=== PATIENT | male | born 1955 | race Caucasian/White ===

== ENCOUNTER 2017-09-21 09:55 | Outpatient (POV) | payer OTHER, SELFPAY | END 2017-09-21 12:08 | disposition home or self-care (01) | PROVIDERS: Visit Provider Podiatrist | DX: M21.372 Foot drop, left foot (principal); E11.42 Type 2 diabetes mellitus with diabetic polyneuropathy; L84 Corns and callosities | CPT/HCPCS: 99202; 11056; 73630 ==

== ENCOUNTER → 2017-09-29 | Outpatient (POV) | payer OTHER, SELFPAY | PROVIDERS: Visit Provider Podiatrist ==

== ENCOUNTER → 2017-11-03 10:31 | Outpatient (POV) | payer OTHER, SELFPAY | PROVIDERS: Visit Provider Podiatrist | DX: Z00.00 Encounter for general adult medical examination without abnormal findings (principal) ==

== ENCOUNTER → 2017-12-29 06:22 | Outpatient (CLI) | payer OTHER, SELFPAY ==
--- NOTE | 2017-12-29 06:27 | NM_ITS ---
History and Indications: Hypertension, diabetes, hyperlipidemia, family history, chest pain, shortness of breath and fatigue Procedure: Patient received a 0.4 mg of Lexiscan, resting heart rate was 69 beats per resting blood pressure 122/61, with Lexiscan patient denied any symptoms of chest pain or shortness of breath. The maximum heart rate achieved was 89 bpm which is less than 85% of the maximum predicted heart rate and a blood pressure was 123/58. Electrocardiogram: Resting electrocardiogram showed sinus rhythm nonspecific ST-T changes possible inferior infarct age indeterminate, with Lexiscan there is less than 1.[address] segment depression noted from the baseline EKG. The EKG portion of the Lexiscan Myoview is nondiagnostic. Cardiac stress and resting SPECT images: Cardiac stress and resting SPECT images were obtained using Tc 99 Myoview 10.5 mCi at rest and 31.9 mCi at stress, gated SPECT further analysis of segmental wall motion and calculation of ejection fraction also done. Cardiac stress and rest SPECT images show a fixed defect in the inferior wall with normal contractility in the gated SPECT is secondary to soft tissue attenuation. Computer derived ejection fraction is 53% with no obvious regional wall motion abnormality, right ventricle is normal size and contractility. Conclusion: 1. The EKG portion of the Lexiscan Myoview is nondiagnostic. 2. No obvious scintigraphic evidence of reversible ischemia seen, computer derived ejection fraction is 53% with no obvious regional wall motion abnormality, right ventricle is normal size and contractility.
--- NOTE | 2017-12-29 07:12 | CA_ITS ---
PROCEDURE: 2-D M-mode and color Doppler study INDICATIONS FOR THE TEST: Chest pain + COPD Heart Murmur Tobacco Smoking Palpitations Fatigue Syncope Edema Hypertension+Diabetes Mellitus+ Rheumatic Fever SOB+ANGELES+Obesity+Hyperlipidemia+ Family History HD Additional History PATIENT INFORMATION HEIGHT: 68 WEIGHT:230 GENDER: Male B/P:120/66 2-D/M-MODE INTERPRETATION: 2-D MEASUREMENTS OBSERVED VALUES IN CMS Right Ventricular Dimension (RVDd) 1.7 Interventricular Septum (Thickness)(IVsd) 0.9 Left Ventricular Internal Dimensions(LVIDd) 5.2 Left Ventricular Posterior Wall (Thickness)(LVPWd) 1.2 Aortic Root 3.4 Aortic Cusp Separation 2.1 Left Atrial Dimensions (LAD) 3.8 2D 1. Left atrium is qualitatively mildly enlarged, left ventricle is normal size, there is mild concentric left ventricular hypertrophy present, visually estimated ejection fraction of 55% with no obvious regional wall motion abnormality. 2. The right atrium and right ventricle are qualitatively mildly enlarged. 3. The aortic valve is minimally thickened and fibrosed. 4. The mitral and tricuspid valve leaflets are minimally thickened. 5. The pulmonic valve is poorly visualized. 6. No significant pericardial effusion noted. DOPPLER INTERROGATION: Doppler interrogation of the aortic, mitral and tricuspid valvular presence of mild mitral and tricuspid regurgitation, tricuspid and jet velocity is insufficient for calculation of the right ventricular systolic pressure, grade 1 diastolic dysfunction seen with tissue Doppler evidence of raised left atrial pressure. CONCLUSION: 1. Mildly enlarged left atrium, normal left ventricular size, mild concentric left ventricular hypertrophy, visually estimated ejection fraction 55% with no obvious regional wall motion abnormality, grade 1 diastolic dysfunction seen with tissue Doppler evidence of raised left atrial pressure. 2. Mildly enlarged right ventricle with normal contractility. 3. Mild mitral and tricuspid regurgitation 4. No significant pericardial effusion noted.
--- NOTE | 2017-12-29 10:18 | HMH.ITSHM ---
gabapentin alogliptin aspirin glipzide lisinopril amitriptylin atorvastatin omeprazole
== END ==
PROVIDERS: PCP Podiatrist; Visit Provider Internal Medicine
DX: R07.9 Chest pain, unspecified (principal); R06.02 Shortness of breath; E11.9 Type 2 diabetes mellitus without complications; G47.33 Obstructive sleep apnea (adult) (pediatric)
CPT/HCPCS: 78452; 93017; 93306; A9502; J2785

== ENCOUNTER → 2018-02-02 09:15 | Outpatient (POV) | payer OTHER, SELFPAY | PROVIDERS: Visit Provider Podiatrist | DX: Z00.00 Encounter for general adult medical examination without abnormal findings (principal) ==

== ENCOUNTER → 2019-11-19 08:03 | Outpatient (CLI) | payer MEDICAID, SELFPAY ==
--- NOTE | 2019-11-19 08:06 | CA_ITS ---
APPROVED REPORT EXAM: Comprehensive 2D, Doppler, and color-flow Echocardiogram Package Delivery Driver: Ines Kessler RDCS Ht: 5 ft 8 in Wt: 220lbs BSA: 2.13 BP: 145/80 mmHg Indications: Chest Pain, Shortness of Breath, Diabetes, CAD, Hyperlipidemia, Hypertension/HDD 2D Dimensions LVOT 2.05 cm (M/F) 1.5-2.5 M-Mode Dimensions RVDd 2.57 cm (0.9-2.6) LVDd 5.33 cm (3.5-5.7) LVDs 4.31 cm (3.5-5.7) IVSd 0.95 cm (0.6-1.1) PWd 1.06 cm (0.6-1.1) EF (Teich) 39.10% FS 19.10% EDV (Teich) 137.10 mL ESV (Teich) 83.50 mL LV Diastology E/A Ratio 0.83 Mitral Valve MV A Velocity 79.00 (40-130 cm/s) Left Ventricle Left atrium is mildly enlarged, left ventricle is normal size, mild concentric left ventricular hypertrophy, visually estimated ejection fraction 55% with no regional wall motion abnormality, diastolic parameters are consistent with grade 1 diastolic dysfunction without tissue Doppler evidence of raise left atrial pressure. Right Ventricle Right atrium and right ventricular normal size and contractility. Aortic Valve Aortic valve is minimally thickened and fibrosed. There is no aortic stenosis or aortic insufficiency. Mitral Valve Mitral valve is grossly normal, there is mild mitral regurgitation. Tricuspid Valve Tricuspid valve is grossly normal, there is mild tricuspid regurgitation. Tricuspid regurgitation jet velocity is inadequate for calculation of the right ventricular systolic pressure. Pulmonic Valve Pulmonic valve is poorly visualized. Great Vessels Aortic root is normal size. Pericardium No significant pericardial effusion noted. Conclusion 1. Mildly enlarged left atrium, normal left ventricular size, mild concentric left ventricular hypertrophy, visually estimated ejection fraction 55% with no regional wall motion abnormality, grade 1 diastolic dysfunction seen without tissue Doppler evidence of raise left atrial pressure. 2. Mild mitral and tricuspid regurgitation. 3. No significant pericardial effusion noted. Electronically signed by : Lit Carrasquillo, 11/19/2019 20:46:18
== END ==
PROVIDERS: PCP Nurse Practitioner Family; Visit Provider Nurse Practitioner Family
DX: R07.9 Chest pain, unspecified (principal); R06.00 Dyspnea, unspecified; R94.31 Abnormal electrocardiogram [ECG] [EKG]; I10 Essential (primary) hypertension; Z71.3 Dietary counseling and surveillance; E11.65 Type 2 diabetes mellitus with hyperglycemia
CPT/HCPCS: 93306; 97802

== ENCOUNTER → 2019-12-11 08:51 | Outpatient (CLI) | payer MEDICAID, SELFPAY ==
[2019-12-11 10:54] LABS: Hematocrit 41.3 % (42.0-52.0); Hemoglobin 14.1 g/dL (14.1-18.0); Red Blood Count 4.32 M/mm3 (4.60-6.20); White Blood Count 6.1 K/mm3 (4.8-10.8)
[2019-12-11 10:55] LABS: Basophils # 0.1 K/mm3 (0-0.2); Basophils % 1.2 % (0.1-2.0); Eosinophils # 0.1 K/mm3 (0.0-0.4); Eosinophils % 1.2 % (0.1-12.0); Lymphocytes # 0.9 K/mm3 (0.7-4.5); Lymphocytes % 15.7 % (10-50); Mean Corpuscular HGB Conc 34.2 g/dL (31.8-35.4); Mean Corpuscular Hemoglobin 32.6 pg (27.0-31.2); Mean Corpuscular Volume 95.5 fl (80-94); Mean Platelet Volume 8.4 fl (7.4-10.4); Monocytes # 0.4 K/mm3 (0.1-1.0); Neutrophils # 4.7 K/mm3 (1.8-7.8); Neutrophils % 75.8 % (37.0-80.0); Platelet Count 108 K/mm3 (142-424); Red Cell Distribution Width 14.7 % (11.5-17.5)
[2019-12-11 11:19] LABS: Chloride 96 mmol/L (98-107); Potassium 3.8 mmoL/L (3.5-5.1); Sodium 138 mmol/L (136-145)
[2019-12-11 11:22] LABS: Alanine Aminotransferase 39 U/L (12-78); Albumin Level 4.2 g/dl (3.5-5.0); Albumin/Globulin Ratio 1.6 (1.1-1.8); Alkaline Phosphatase 90 U/L (38-126); Anion Gap 16.8 mEq/L (5-15); Aspartate Amino Transferase 46 U/L (17-59); Bilirubin,Total 4.7 mg/dl (0.2-1.3); Blood Urea Nitrogen 17 mg/dl (9-20); Calcium 9.4 mg/dl (8.4-10.2); Carbon Dioxide 29 mmol/L (22.0-30.0); Chol/HDL Ratio 3.8 (1-3.5); Cholesterol 94 mg/dl (140-200); Estimated Glomerular Filt Rate 114 ml/min (>60); GFR (African American) 138 ML/MIN (>60); Globulin 2.6 g/dL (1.3-3.2); Glucose 310 mg/dl (74-100); HDL Cholesterol 25 mg/dl (40-60); Total Protein,Serum 6.8 g/dl (6.3-8.2); Triglycerides 216 mg/dl (30-150); VLDL Cholesterol 43 mg/dL (0-40)
[2019-12-11 11:34] LABS: Direct LDL Cholesterol 42.57 mg/dL (100-129)
[2019-12-11 11:36] LABS: C-Reactive Protein 53.3 mg/L (0-4)
[2019-12-11 11:41] LABS: T4 (Thyroxine) 9.8 ug/dl (5.53-11.0)
[2019-12-11 11:54] LABS: Thyroid Stimulating Hormone 1.59 uIU/mL (0.465-4.68)
[2019-12-11 11:57] LABS: Erythrocyte Sedimentation Rate 109 mm/hr (0-20)
[2019-12-11 12:27] LABS: Hemoglobin A1C 9.4 % (4.0-6.0)
[2019-12-11 16:08] LABS: Amphetamine/Metha Screen,Urine Negative ng/ml (<1000)
[2019-12-11 16:09] LABS: Barbiturates Screen,Urine Negative ng/ml (<200); Benzodiazepines Screen,Urine Negative ng/ml (<200)
[2019-12-11 16:10] LABS: Cannabinoid Screen,Urine Negative ng/ml (<50)
[2019-12-11 16:11] LABS: Cocaine Screen,Urine Negative ng/ml (<300); Methadone Screen,Urine Negative ng/ml (<300)
[2019-12-11 16:12] LABS: Opiate Screen,Urine Negative ng/ml (<300)
[2019-12-11 16:13] LABS: Phencyclidine Screen,Urine Negative ng/ml (<25)
[2019-12-12 12:33] LABS: Anti-Centromere B Antibodies <0.2 AI (0.0-0.9); Anti-Jo-1 <0.2 AI (0.0-0.9); Anti-Smith Antibody <0.2 AI (0.0-0.9); Antichromatin Antibodies <0.2 AI (0.0-0.9); Antiscleroderma-70 Antibodies <0.2 AI (0.0-0.9); RNP Antibodies <0.2 AI (0.0-0.9); Sjogren's Anti-SS-A <0.2 AI (0.0-0.9); Sjogren's Anti-SS-B <0.2 AI (0.0-0.9)
[2019-12-13 10:34] LABS: Anti-DNA (DS) Ab Qn <1 IU/mL (0-9); RA Latex Turbid. <10.0 IU/mL (0.0-13.9); Vitamin D 25 Hydroxy 16.2 ng/mL (30.0-100.0)
[2019-12-13 10:37] LABS: Anti-Cyclic Citrullinated Pept 7 units (0-19)
[2019-12-13 11:09] LABS: Microalbumin, Urine 9.1 ug/mL (Not Estab.)
== END ==
PROVIDERS: Visit Provider Nurse Practitioner Family
DX: E11.9 Type 2 diabetes mellitus without complications (principal); Z79.84 Long term (current) use of oral hypoglycemic drugs; Z79.899 Other long term (current) drug therapy
CPT/HCPCS: 36415; 80053; 80061; 80305; 82043; 82570; 82652; 83036; 84436; 84443; 85025; 85651; 86140; 86200; 86225; 86235; 86431

== ENCOUNTER → 2019-12-25 13:10 | Outpatient (POV) | payer SELFPAY | DX: Z00.00 Encounter for general adult medical examination without abnormal findings (principal) ==

== ENCOUNTER → 2020-01-08 14:33 | Outpatient (CLI) | payer SELFPAY ==
--- NOTE | 2020-01-08 14:34 | CT_ITS ---
PROCEDURE: CT HEART W CALCIUM SCORE CLINICAL HISTORY: cp/dyspnea COMPARISON: No exams were available for comparison TECHNIQUE: Axial images obtained with sagittal and coronal reformats. All CT scans at the facility use one or more dose reduction, viz: automated exposure control, ma/kV adjustment per patient size (including targeted exams where dose is matched to indication, i.e. head), or iterative reconstruction technique. FINDINGS: Coronary artery calcium score is 3957 indicating extensive calcific plaque burden with very high cardiovascular disease risk IMPRESSION: Extensive calcific plaque burden with very high cardiovascular disease risk Dictated by: Ata Hardy MD 01/08/2020 19:35 Electronically signed by Ata Hardy MD in [place] 01/08/2020 19:35
== END ==
PROVIDERS: PCP Emergency Medicine; Visit Provider Internal Medicine Cardiovascular Disease
DX: Z13.6 Encounter for screening for cardiovascular disorders (principal); R06.00 Dyspnea, unspecified; R07.9 Chest pain, unspecified; R94.31 Abnormal electrocardiogram [ECG] [EKG]; I10 Essential (primary) hypertension
CPT/HCPCS: 75571

== ENCOUNTER 2020-02-10 14:50 | Outpatient (RCR) | payer MEDICAID, SELFPAY | END 2020-05-25 11:13 | disposition home or self-care (01) | LOC: PT 14:50 | PROVIDERS: Visit Provider Internal Medicine | DX: Z95.5 Presence of coronary angioplasty implant and graft (principal) | CPT/HCPCS: 93798 ==

== ENCOUNTER → 2020-02-26 13:44 | Outpatient (CLI) | payer MEDICAID, SELFPAY ==
[2020-02-26 16:00] LABS: Troponin I < 0.01 ng/ml (0.00-0.034)
[2020-02-26 16:21] LABS: Thyroid Stimulating Hormone 0.93 uIU/mL (0.465-4.68)
== END ==
PROVIDERS: Visit Provider Nurse Practitioner Family
DX: E11.9 Type 2 diabetes mellitus without complications (principal); E78.5 Hyperlipidemia, unspecified; I10 Essential (primary) hypertension; R06.00 Dyspnea, unspecified; R07.9 Chest pain, unspecified
CPT/HCPCS: 36415; 84443; 84484

== ENCOUNTER → 2020-03-05 07:50 | Outpatient (CLI) | payer MEDICAID, SELFPAY ==
--- NOTE | 2020-03-05 07:50 | MR_ITS ---
PROCEDURE: MR LUMBAR SPINE WO CON CLINICAL INDICATION: back pain Low back pain with bilateral leg pain and numbness and tingling COMPARISON: PROGRAM DIRECTOR SUBSTANCE ABUSE/O MRI-L-SPINE W/O from 02/21/2017 TECHNIQUE: Standard multiplanar multiecho sequences are performed without contrast. 3-D MIP and myelographic images are also rendered and reviewed FINDINGS: There is normal alignment. The spinal cord ends at the L1 level. T11-T12: Degenerate disc disease with bulging disc along with mild facet and ligamentum hypertrophy with narrowing of the canal and moderate right lateral recess narrowing similar to the previous exam T12-L1: Unremarkable. L1-L2: Mild disc desiccation. Small anterior osteophytes. Prominent lipoma of L2 vertebral body unchanged. L2-L3: Degenerative disc disease with bulging disc with small central annular fissure along with facet and ligamentum hypertrophy with mild bilateral foraminal narrowing. The bulging disc is somewhat eccentric toward the left. This is not significantly changed. Lipoma of L3 vertebral body unchanged. L3-L4: Bulging disc with facet and ligamentum hypertrophy with moderate bilateral foraminal narrowing not significantly changed. L4-5: Degenerative disc disease with bulging disc and a broad-based central left paracentral and foraminal disc protrusion with facet ligamentum hypertrophy with canal stenosis and severe bilateral foraminal and lateral recess narrowing. The lateral recess narrowing is greater on the left compared to the right and the foraminal narrowing is greater on the right compared to the left. The canal stenosis appears somewhat worse compared to the previous exam. The the central disc protrusion is somewhat worse on today's study as well. L5-S1: Bulging disc along with moderate facet and ligamentum hypertrophy with severe bilateral foraminal narrowing not significantly changed. There are small bilateral renal cyst. IMPRESSION: Abnormal MRI of the lumbar spine. There is multilevel lumbar spondylosis with degenerative disc disease with bulging disc and facet and ligamentum hypertrophy with resultant lateral recess and foraminal narrowing.. Most of these areas are not significantly changed compared to the previous exam. Please see above for detailed description at each level. Degenerative disc at L4-5 disease with bulging disc and a broad-based central left paracentral and foraminal disc protrusion with facet ligamentum hypertrophy with canal stenosis and severe bilateral foraminal and lateral recess narrowing. The lateral recess narrowing is greater on the left compared to the right and the foraminal narrowing is greater on the right compared to the left. The canal stenosis appears somewhat worse compared to the previous exam. The foraminal narrowing on the right appears somewhat worse compared to the previous study. The the central disc protrusion is somewhat worse on today's study as well. Dictated by: Ata Hardy MD 03/06/2020 11:41 Electronically signed by Ata Hardy MD in [place] 03/06/2020 11:41
== END ==
PROVIDERS: PCP Emergency Medicine; Visit Provider Emergency Medicine
DX: M54.9 Dorsalgia, unspecified (principal)
CPT/HCPCS: 72148; 76376

== ENCOUNTER → 2020-03-06 17:17 | Outpatient (CLI) | payer MEDICAID, SELFPAY ==
[2020-03-06 18:07] LABS: Basophils # 0.1 K/mm3 (0-0.2); Basophils % 1.1 % (0.1-2.0); Eosinophils # 0.1 K/mm3 (0.0-0.4); Eosinophils % 2.9 % (0.1-12.0); Hematocrit 37.4 % (42.0-52.0); Hemoglobin 12.8 g/dL (14.1-18.0); Lymphocytes # 0.9 K/mm3 (0.7-4.5); Lymphocytes % 19.6 % (10-50); Mean Corpuscular HGB Conc 34.1 g/dL (31.8-35.4); Mean Corpuscular Hemoglobin 31.9 pg (27.0-31.2); Mean Corpuscular Volume 93.5 fl (80-94); Mean Platelet Volume 8.1 fl (7.4-10.4); Monocytes # 0.3 K/mm3 (0.1-1.0); Monocytes % 5.5 % (1.7-9.3); Neutrophils # 3.2 K/mm3 (1.8-7.8); Neutrophils % 70.9 % (37.0-80.0); Platelet Count 120 K/mm3 (142-424); Red Cell Distribution Width 16.3 % (11.5-17.5); White Blood Count 4.6 K/mm3 (4.8-10.8)
[2020-03-06 18:11] LABS: Chloride 96 mmol/L (98-107); Sodium 134 mmol/L (136-145)
[2020-03-06 18:12] LABS: Potassium 4.4 mmoL/L (3.5-5.1)
[2020-03-06 18:14] LABS: Alanine Aminotransferase 37 U/L (12-78); Albumin Level 4.1 g/dl (3.5-5.0); Albumin/Globulin Ratio 1.4 (1.1-1.8); Alkaline Phosphatase 85 U/L (38-126); Anion Gap 11.4 mEq/L (5-15); Aspartate Amino Transferase 52 U/L (17-59); Blood Urea Nitrogen 15 mg/dl (9-20); Carbon Dioxide 31 mmol/L (22.0-30.0); Estimated Glomerular Filt Rate 114 ml/min (>60); GFR (African American) 138 ML/MIN (>60); Total Protein,Serum 7.1 g/dl (6.3-8.2)
[2020-03-06 18:15] LABS: Calcium 8.6 mg/dl (8.4-10.2); Chol/HDL Ratio 2.8 (1-3.5); Cholesterol 97 mg/dl (140-200); Glucose 255 mg/dl (74-100); HDL Cholesterol 35 mg/dl (40-60); Triglycerides 199 mg/dl (30-150); VLDL Cholesterol 40 mg/dL (0-40)
[2020-03-06 18:26] LABS: Direct LDL Cholesterol 50.44 mg/dL (100-129)
[2020-03-06 18:45] LABS: Thyroid Stimulating Hormone 1.02 uIU/mL (0.465-4.68)
[2020-03-06 18:46] LABS: Hemoglobin A1C 7.3 % (4.0-6.0)
[2020-03-06 18:56] LABS: Barbiturates Screen,Urine Negative ng/ml (<200)
[2020-03-06 18:57] LABS: Amphetamine/Metha Screen,Urine Negative ng/ml (<1000); Benzodiazepines Screen,Urine Negative ng/ml (<200)
[2020-03-06 18:58] LABS: Cannabinoid Screen,Urine Negative ng/ml (<50); Cocaine Screen,Urine Negative ng/ml (<300)
[2020-03-06 18:59] LABS: Methadone Screen,Urine Negative ng/ml (<300)
[2020-03-06 19:00] LABS: Opiate Screen,Urine Negative ng/ml (<300); Phencyclidine Screen,Urine Negative ng/ml (<25)
[2020-03-08 09:11] LABS: Creatinine, Urine 62.5 mg/dL (Not Estab.); Microalbumin, Urine 3.5 ug/mL (Not Estab.)
[2020-03-08 09:57] LABS: Vitamin D 25 Hydroxy 27.3 ng/mL (30.0-100.0)
== END ==
PROVIDERS: Visit Provider Emergency Medicine
DX: E11.9 Type 2 diabetes mellitus without complications (principal); G62.9 Polyneuropathy, unspecified; Z79.84 Long term (current) use of oral hypoglycemic drugs
CPT/HCPCS: 80053; 80061; 80305; 82043; 82570; 82652; 83036; 84436; 84443; 85025

== ENCOUNTER → 2020-03-13 13:59 | Outpatient (CLI) | payer MEDICAID, SELFPAY ==
[2020-03-13 16:55] LABS: Chloride 95 mmol/L (98-107); Potassium 4.5 mmoL/L (3.5-5.1); Sodium 137 mmol/L (136-145)
[2020-03-13 16:58] LABS: Anion Gap 12.5 mEq/L (5-15); Blood Urea Nitrogen 10 mg/dl (9-20); Carbon Dioxide 34 mmol/L (22.0-30.0); Estimated Glomerular Filt Rate 137 ml/min (>60); GFR (African American) 165 ML/MIN (>60)
[2020-03-13 16:59] LABS: Calcium 9.1 mg/dl (8.4-10.2); Glucose 283 mg/dl (74-100)
[2020-03-15 14:04] LABS: Peripheral Smear Review Scanned Result
== END ==
PROVIDERS: Physician Assistant; Visit Provider Nurse Practitioner Family
DX: D69.6 Thrombocytopenia, unspecified (principal); D61.818 Other pancytopenia; R06.09 Other forms of dyspnea; I25.118 Atherosclerotic heart disease of native coronary artery with other forms of angina pectoris; R94.31 Abnormal electrocardiogram [ECG] [EKG]; I10 Essential (primary) hypertension; E66.9 Obesity, unspecified; G47.33 Obstructive sleep apnea (adult) (pediatric)
CPT/HCPCS: 36415; 80048

== ENCOUNTER → 2020-03-23 09:05 | Outpatient (POV) | payer MEDICAID, SELFPAY ==
[2020-03-23 09:20] VITALS: BP 147/84; PULSE 71; RESP 18; TEMP 36.6; O2SAT 99; BMI 40.4
--- NOTE | 2020-03-24 16:27 | HMH.PMCON ---
Assessment and Plan (1) Degenerative joint disease (DJD) of lumbar spine Current visit: Yes Status: Chronic Qualifiers: Spinal osteoarthritis complication: with radiculopathy Qualified Code(s): M47.26 - Other spondylosis with radiculopathy, lumbar region Category: Medical Code(s): M47.816 - Spondylosis without myelopathy or radiculopathy, lumbar region - Assessment and plan all Dx Assessment and Plan for all problems:: Patient will be given information in regards to intrathecal and neurostimulator therapies. He will review this and return to our office to discuss if this is something he would like to move forward with this. Patient's been instructed to call the office if he has any issues prior to his next appointment. HPI - Data of Consult Consult date: 03/23/20 Requesting Physician: Anjana Grigsby APRN Primary Care Provider: Eladio Garcia MD - Consult Narrative Reason for consult: Back pain, leg pain History of present illness: Mr. Gutierrez is a 64 year old male who presents today for consultation regards to his low back and leg pain. He rates it a 4 out of 10. He has pain that radiates into his legs. All activity makes it worse well pain medication makes it better. He is tried and failed physical therapy. Patient has had your epidural injections in [place] in the past which made it worse. He also states it made it sick. Patient's tried and failed chiropractic therapy along with physical therapy. Patient has numbness and tingling bilateral legs. Patient and I also had a long discussion in regards to treatment. I do believe that he would benefit from an intrathecal pain pump trial. We discussed this. Patient has had this pain for quite some time. He is 64 and at this point opioid medication will not manage him long-term. He is receiving [place] from his primary care physician. CC: Anjana Grigsby APRN [facility] History I have reviewed the patient's past medical history: Yes Medical History: Reports:: Coronary Artery Disease, Diabetes Mellitus Type 2, Gastroesophageal Reflux Disease(GERD), Hyperlipidemia, Hypertension Denies:: Cancer, MRSA *Have you ever received a pneumonia vaccine?: Yes *Have you received a flu vaccine this season?: Yes Other Medical History: Reports: Arthritis Laterality Cases: Bilateral: Arthroscopy Shoulder, Tonsillectomy Other Surgeries: Yes: Cardiac Catheterization, Coronary Stent, Other Amputation: No Fractures: No - *Social History Smoking Status: Never smoker # Packs/Day (cigarettes): 0 #Yrs smoked (if former smoker): 0 Alcohol Intake: never Alcohol Intake Frequency:: a few times a month Substance Use Type: denies use *Occupational Status:: other Housing: house Household Members: other *Travel in the last 8 weeks: None Family Hx:: Unable to obtain Review of Systems - Review of Systems ROS General: no recent weight change, no fever, no sleep disturbances Respiratory: no cough, no shortness of air, no recurring pulmonary infections Cardiovascular/Peripheral Vascular: No chest pain, No palpitations, no edema, no shortness of breath. Gastrointestinal: no new onset incontinence, normal bowel movements reported Genitourinary: no new onset incontinence Musculoskeletal: Back pain, leg pain Psychiatric: normal mood/ affect, Neurological: [denies new onset weakness in extremities], [denies new onset balance issues] Meds Home Medications Medication Instructions Recorded Confirmed Type lancets 30 gauge See Dose Instructions .ROUTE 01/22/18 03/06/20 Rx .MEDSUPPLY #100 each blood sugar diagnostic See Dose Instructions .ROUTE 02/12/18 03/06/20 Rx .MEDSUPPLY #100 each losartan 50 mg tablet 50 mg PO DAILY tab 12/11/19 03/06/20 History acetaminophen 300 mg-codeine 30 mg 1 tab PO BID PRN #60 tab 01/07/20 03/06/20 Rx tablet aspirin 81 mg tablet,delayed 81 mg PO DAILY #30 tab 01/17/20 03/06/20 Rx release clopidogrel 75 mg tablet 75 mg PO
== END ==
PROVIDERS: PCP Emergency Medicine; Visit Provider Clinical Nurse Specialist Family Health
DX: M47.26 Other spondylosis with radiculopathy, lumbar region (principal)
CPT/HCPCS: 99202

== ENCOUNTER → 2020-03-23 10:09 | Outpatient (CLI) | payer MEDICAID, SELFPAY ==
[2020-03-23 10:14] LABS: MANUAL DIFFERENTIAL MANUAL DIFFERENTIAL (MANUAL DIFF)
[2020-03-23 10:48] LABS: Basophils # 0.1 K/mm3 (0-0.2); Basophils % 1.2 % (0.1-2.0); Eosinophils # 0.1 K/mm3 (0.0-0.4); Eosinophils % 2.5 % (0.1-12.0); Hematocrit 38.9 % (42.0-52.0); Hemoglobin 13.5 g/dL (14.1-18.0); Lymphocytes % 21.3 % (10-50); Mean Corpuscular HGB Conc 34.6 g/dL (31.8-35.4); Mean Corpuscular Hemoglobin 33.2 pg (27.0-31.2); Mean Corpuscular Volume 96.1 fl (80-94); Mean Platelet Volume 7.7 fl (7.4-10.4); Monocytes # 0.3 K/mm3 (0.1-1.0); Monocytes % 5.4 % (1.7-9.3); Neutrophils # 3.2 K/mm3 (1.8-7.8); Neutrophils % 69.5 % (37.0-80.0); Platelet Count 99 K/mm3 (142-424); Red Blood Count 4.05 M/mm3 (4.60-6.20); Red Cell Distribution Width 15.8 % (11.5-17.5); White Blood Count 4.7 K/mm3 (4.8-10.8)
[2020-03-23 21:36] LABS: Eosinophils % 6 % (0-3); Lymphocytes % 18 % (10-50); Monocytes % 8 % (2-9); Neutrophils % 67 % (42-76); Platelet Estimate Slight Decrease; Total Cells Counted 100
[2020-03-23 21:37] LABS: Stomatocytes 1+
== END ==
PROVIDERS: Visit Provider Physician Assistant
DX: D69.6 Thrombocytopenia, unspecified (principal)
CPT/HCPCS: 36415; 85007; 85014; 85018; 85048; 85049

== ENCOUNTER → 2020-04-08 15:11 | Outpatient (CLI) | payer MEDICAID, SELFPAY ==
[2020-04-08 16:13] LABS: Basophils % 0.6 % (0.1-2.0); Eosinophils # 0.1 K/mm3 (0.0-0.4); Eosinophils % 2.6 % (0.1-12.0); Hematocrit 36.8 % (42.0-52.0); Hemoglobin 12.7 g/dL (14.1-18.0); Lymphocytes # 1.1 K/mm3 (0.7-4.5); Lymphocytes % 23.7 % (10-50); Mean Corpuscular HGB Conc 34.6 g/dL (31.8-35.4); Mean Corpuscular Hemoglobin 33.2 pg (27.0-31.2); Mean Corpuscular Volume 95.8 fl (80-94); Mean Platelet Volume 7.9 fl (7.4-10.4); Monocytes # 0.2 K/mm3 (0.1-1.0); Neutrophils # 3.3 K/mm3 (1.8-7.8); Neutrophils % 69.1 % (37.0-80.0); Platelet Count 99 K/mm3 (142-424); Red Blood Count 3.84 M/mm3 (4.60-6.20); Red Cell Distribution Width 15.4 % (11.5-17.5); White Blood Count 4.8 K/mm3 (4.8-10.8)
[2020-04-08 17:04] LABS: Iron 104 ug/dL (49-181)
[2020-04-08 18:09] LABS: Total Iron Binding Capacity 278 ug/dL (261-462)
[2020-04-08 18:37] LABS: Ferritin 400 ng/ml (17.9-464)
[2020-04-10 09:26] LABS: Vitamin B12 937 pg/mL (232-1245)
[2020-04-10 11:16] LABS: Folate 5.7 ng/mL (>3.0)
[2020-04-10 16:13] LABS: Miscellaneous Test 85
== END ==
PROVIDERS: Visit Provider Internal Medicine Medical Oncology
DX: D61.818 Other pancytopenia (principal)
CPT/HCPCS: 36415; 82607; 82728; 82746; 83540; 83550; 85025

== ENCOUNTER → 2020-04-14 10:10 | Outpatient (CLI) | payer MEDICAID, SELFPAY ==
--- NOTE | 2020-04-14 10:13 | CT_ITS ---
PROCEDURE: CT ABDOMEN PELVIS W CON CLINICAL INDICATION: COLON CA COMPARISON: No exams were available for comparison TECHNIQUE: IV Contrast: 75ML OPTIRAY 350 Oral Contrast None Axial images obtained with sagittal and coronal reformats. All CT scans at the facility use one or more dose reduction, viz: automated exposure control, ma/kV adjustment per patient size (including targeted exams where dose is matched to indication, i.e. head), or iterative reconstruction technique. FINDINGS: There are a few patchy left perihilar and right lower lobe infiltrates. Diffuse fatty infiltration of the liver is noted. Patient is status post cholecystectomy. The adrenal glands are unremarkable. There is fatty replacement of the pancreatic parenchyma. The spleen is enlarged to 16 centimeters. The kidneys, aorta, small and large bowel and appendix are unremarkable. Soft tissues and the structures unremarkable. CT scan of the pelvis with contrast The prostate is slightly enlarged. Seminal vesicles, bladder, soft soft tissues come and the bony structures are unremarkable except for degenerative narrowing of the bilateral hips. Mild sigmoid diverticulosis is noted. IMPRESSION: Mild sigmoid diverticulosis, splenomegaly, hepatic steatosis Dictated by: Ferdinand Medel 04/14/2020 14:39 Electronically signed by Ferdinand Medel in [place] 04/14/2020 14:39
[2020-04-14 11:17] LABS: Blood Urea Nitrogen 15 mg/dl (9-20); Estimated Glomerular Filt Rate 168 ml/min (>60); GFR (African American) 204 ML/MIN (>60)
== END ==
PROVIDERS: PCP Emergency Medicine; Visit Provider Internal Medicine Medical Oncology
DX: C18.9 Malignant neoplasm of colon, unspecified (principal); D61.818 Other pancytopenia
CPT/HCPCS: 36415; 74177; 82565; 84520; Q9967

== ENCOUNTER → 2020-05-18 10:41 | Outpatient (CLI) | payer MEDICAID, SELFPAY ==
[2020-05-18 13:19] LABS: Coronavirus 19 IgG Antibody Negative (Negative); Coronavirus 19 IgM Antibody Negative (Negative)
== END ==
PROVIDERS: Visit Provider Surgery
DX: Z01.818 Encounter for other preprocedural examination (principal); Z12.11 Encounter for screening for malignant neoplasm of colon
CPT/HCPCS: 36415; 86328

== ENCOUNTER 2020-05-19 07:39 | Day surgery (SDC) | payer MEDICAID, SELFPAY ==
[2020-04-27 12:16] VITALS: BMI 36.5
[2020-05-19 08:05] VITALS: BP 175/89; PULSE 86; RESP 18; TEMP 36.8; O2SAT 96
[2020-05-19 08:09] LABS: POC Glucose,Bedside 216 (70-110)
--- NOTE | 2020-05-19 08:33 | P.PN_ITS ---
[facility] Anesthesia Checklist - Patient Identification Patient Identification: Arm Band, Verbal (Name & ) - Structural Data Admitted From: Home Planned Operative Procedure/s: EGD/Colonoscopy Consent for Planned Operative Procedure(s) Verified: Yes Verified Documents: Surgical Consent, History and Physical - NPO Status Verified Time NPO: 00:00 - Additional verifications Fingerstick Blood Glucose: 216 Anesthesia Reactions: No - Airway Assessment C-Spine Mobility Assessed: Yes TMJ Mobility Assessed: Yes Dentition: Poor Dentition (missing teeth) - Neurological Assessment Level of Consciousness: Awake, Alert, Appropriate, Follows Commands Hx Seizures: No Numbness or tingling in extremities: Yes - Anesthesia Plan Anesthesia Risk discussed: Yes Anesthesia Plan: Verified ASA Class: III Anesthesia Type: MAC [facility] History I have reviewed the patient's past medical history: Yes Medical History: Reports:: Coronary Artery Disease, Diabetes Mellitus Type 2, Gastroesophageal Reflux Disease(GERD), Heart Murmur, Hyperlipidemia, Hypertension Denies:: Cancer, Diabetes Mellitus Type 1, Internal Pacemaker, MRSA, Seizures *Have you ever received a pneumonia vaccine?: No *Have you received a flu vaccine this season?: Yes Other Medical History: Reports: Arthritis Anesthesia experience/problems:: obesity, chronic pain Laterality Cases: Bilateral: Arthroscopy Shoulder, Tonsillectomy Other Surgeries: Yes: Cardiac Catheterization, Colonoscopy, Coronary Stent, Other. No: Pacemaker Amputation: No Fractures: No - *Social History Last grade of school completed: High school graduate Smoking Status: Never smoker # Packs/Day (cigarettes): 0 #Yrs smoked (if former smoker): 0 Alcohol Intake: current Alcohol Intake Frequency:: a few times a month Substance Use Type: denies use *Occupational Status:: employed Housing: house Household Members: spouse *Travel in the last 8 weeks: None Family Hx:: Cancer, Heart Attack, Diabetes
--- NOTE | 2020-05-19 08:55 | HMH.GSHP ---
HPI HPI: Patient is a 64-year-old white male referred by Dr. Garcia's office. It is unclear as to the details of the referral. However, it seems apparent that the patient does need a colonoscopy as he is due. He does have a history of unstable angina and coronary artery disease and is on Plavix after he recently had stents placed. Patient also states that his stomach bothers me . He describes generalized abdominal pains mostly in the mid abdomen and epigastrium. This is been ongoing for several months. Is not associated with eating. Of note, I did perform colonoscopy on the patient 5 years ago with polypectomy. I recommended 5-year follow-up colonoscopy due to family history. Patient states that he has been told he may need an upper endoscopy. He has apparently had some blood laboratory value abnormalities and is reportedly seeing Dr. Stein. [facility] History I have reviewed the patient's past medical history: Yes Medical History: Reports:: Coronary Artery Disease, Diabetes Mellitus Type 2, Gastroesophageal Reflux Disease(GERD), Heart Murmur, Hyperlipidemia, Hypertension Denies:: Cancer, Diabetes Mellitus Type 1, Internal Pacemaker, MRSA, Seizures *Have you ever received a pneumonia vaccine?: No *Have you received a flu vaccine this season?: Yes Other Medical History: Reports: Arthritis Anesthesia experience/problems:: obesity, chronic pain Laterality Cases: Bilateral: Arthroscopy Shoulder, Tonsillectomy Other Surgeries: Yes: Cardiac Catheterization, Colonoscopy, Coronary Stent, Other. No: Pacemaker Amputation: No Fractures: No - *Social History Last grade of school completed: High school graduate Smoking Status: Never smoker # Packs/Day (cigarettes): 0 #Yrs smoked (if former smoker): 0 Alcohol Intake: current Alcohol Intake Frequency:: a few times a month Substance Use Type: denies use *Occupational Status:: employed Housing: house Household Members: spouse *Travel in the last 8 weeks: None Family Hx:: Cancer, Heart Attack, Diabetes Review of Systems - Review of Systems Review of systems:: pertinent systems reviewed and negative unless documented below Meds Home Medications Medication Instructions Recorded Confirmed Type aspirin 81 mg tablet,delayed 81 mg PO DAILY #30 tab 01/17/20 05/04/20 Rx release peg 3350 240 gram-electrolytes 240 ml PO Q10M #4000 ml 05/12/20 05/12/20 Rx 22.72 gram-6.72 g-5.84 g powdr for soln Atorvastatin Calcium [Lipitor 10mg 10 mg PO QHS 05/19/20 History Tab] Blood Sugar Diagnostic [Premier 0 1000units .ROUTE .MEDSUPPLY 05/19/20 History Test Strip] Cholecalciferol (Vitamin D3) 1,000 unit PO DAILY 05/19/20 History [Vitamin D3 1,000 Unit Cap] Clopidogrel Bisulfate [Plavix 75mg 75 mg PO DAILY 05/19/20 History Tab] Ergocalciferol (Vitamin D2) 50,000 unit PO QWEEK 05/19/20 History [Drisdol] Furosemide [Furosemide 20mg Tab] 20 mg PO DAILY 05/19/20 History Gabapentin 800 mg PO TID 05/19/20 History Isosorbide Mononitrate [Imdur 30mg 30 mg PO DAILY 05/19/20 History ER tablet] Lancets [E-Zject Lancets] 0 1000units .ROUTE .MEDSUPPLY 05/19/20 History Linagliptin [Tradjenta] 5 mg PO DAILY 05/19/20 History Losartan Potassium [Cozaar 50mg 50 mg PO DAILY 05/19/20 History Tablets] Oxycodone HCl/Acetaminophen 1 tab PO BID 05/19/20 History [Percocet 5/325mg tablet] carvediloL [Carvedilol 12.5mg Tab] 12.5 mg PO BID 05/19/20 History glipiZIDE [Glipizide] See Rx Instructions .ROUTE .COMPLEX 05/19/20 History Allergies Allergy/AdvReac Type Severity Reaction Status Date / Time No Known Allergies Allergy Unknown Uncoded 05/04/20 13:33 Exam Vital signs and Labs for Last 24 Hours: Temp Pulse Resp BP Pulse Ox 98.2 F 86 18 175/89 H 96 05/19/20 08:05 05/19/20 08:05 05/19/20 08:05 05/19/20 08:05 05/19/20 08:05 Laboratory Results - last 24 hr 05/19/20 08:01: POC Glucose 216 H - *Routine HEENT Exam Head: Present:
[2020-05-19 09:06] VITALS: O2SAT 97
[2020-05-19 10:05] VITALS: BP 129/63; PULSE 77; RESP 18; TEMP 36.5; O2SAT 95
--- NOTE | 2020-05-19 10:05 | HMH.SCOPE ---
- Procedure: Date: 05/19/20 Procedure Performed:: 1. Esophagogastroduodenoscopy with biopsies 2. Total colonoscopy with polypectomy by snare Indications:: Patient is a 64-year-old white male who presents for upper endoscopy and colonoscopy. it seems apparent that the patient does need a colonoscopy as he is due. He does have a history of unstable angina and coronary artery disease and is on Plavix after he recently had stents placed. Patient also states that his stomach bothers me . He describes generalized abdominal pains mostly in the mid abdomen and epigastrium. This is been ongoing for several months. Is not associated with eating. Of note, I did perform colonoscopy on the patient 5 years ago with polypectomy. I recommended 5-year follow-up colonoscopy due to family history. Patient states that he has been told he may need an upper endoscopy. He has apparently had some blood laboratory value abnormalities and is reportedly seeing Dr. Stein. Performing Provider:: Ezequiel Oreilly MD Referring Provider:: Jake Garcia MD Sedation:: Propofol Procedure:: Attention was first turned to upper endoscopy. Patient was positioned in lateral decubitus position. Adequate intravenous sedation was achieved. Olympus endoscope was inserted via the oropharynx advanced through the esophagus. Esophagus appeared normal. Stomach was cannulated and insufflated. There was some retained food matter and generous amount of gastric liquid within the stomach. There was evidence of moderate diffuse esophagitis. Gastric antral mucosal biopsies obtained for CLOtest for H. pylori. Pylorus was traversed. Duodenum overall appeared unremarkable. A couple biopsies were obtained in the prepyloric area of some more reactive firm tissue. Gastric biopsy was obtained of the mid body of the stomach as well. Endoscope was withdrawn. Next attention was turned to colonoscopy. Variable stiffness Olympus colonoscope was inserted to be the anus. With some difficulty due to floppiness of the sigmoid colon it was ultimately advanced to the cecum. Colonic preparation was fair as there was a large amount of retained particulate stool throughout the colon as well as food matter. Thorough irrigation and suctioning was performed which allowed for fair to moderate visualization. Colonoscope was slowly withdrawn through the colon with careful surveillance. There was a small to moderate adenomatous appearing polyp at the hepatic flexure which was removed with cold cutting snare. In the proximal sigmoid colon there was a moderate sized adenomatous polyp removed with cold cutting snare. Retroflexion within the rectum revealed no evidence of any pathologic internal hemorrhoids. Colonoscope was withdrawn. Findings:: Diffuse moderate gastritis Retained liquid and food matter in the stomach Fair colonic preparation Adenomatous polyp at the hepatic flexure and distal sigmoid Recommendations:: Given the fair colonic preparation with moderate sized polyps likely repeat colonoscopy within 1 - 2 years with actual low residue diet and more thorough preparation. This is pending the pathology. Treat gastritis pending pathology. May have some degree of gastroparesis. Complications:: None Estimated blood obtained (mL): 4
[2020-05-19 10:15] VITALS: BP 150/66; PULSE 78; RESP 18; TEMP 36.5; O2SAT 97
[2020-05-19 10:25] VITALS: BP 141/66; PULSE 72; RESP 18; TEMP 36.5; O2SAT 97
[2020-05-19 10:35] VITALS: BP 128/74; PULSE 72; RESP 18; TEMP 36.5; O2SAT 95
== END 2020-05-19 10:35 | disposition home or self-care (01) ==
LOC: OUTP 07:41
PROVIDERS: PCP Emergency Medicine; Visit Provider Surgery
PROC: 0DJ08ZZ Inspection of Upper Intestinal Tract, Via Natural or Artificial Opening Endoscopic (ICD-10-PCS; CPT 43235; principal; 2020-05-19 09:00)
DX: Z12.11 Encounter for screening for malignant neoplasm of colon (principal); K63.5 Polyp of colon; K20.8 Other esophagitis; K29.60 Other gastritis without bleeding; I25.118 Atherosclerotic heart disease of native coronary artery with other forms of angina pectoris; Z79.02 Long term (current) use of antithrombotics/antiplatelets; Z95.818 Presence of other cardiac implants and grafts; E11.9 Type 2 diabetes mellitus without complications; R01.1 Cardiac murmur, unspecified; I10 Essential (primary) hypertension; E78.5 Hyperlipidemia, unspecified; M19.90 Unspecified osteoarthritis, unspecified site
CPT/HCPCS: 43239; 45385; 82962; 87339

== ENCOUNTER → 2020-06-12 13:28 | Outpatient (CLI) | payer MEDICAID, SELFPAY ==
[2020-06-14 15:11] LABS: H. pylori Breath Test Negative (Negative)
== END ==
PROVIDERS: Visit Provider Surgery
DX: K21.9 Gastro-esophageal reflux disease without esophagitis (principal)
CPT/HCPCS: 83013

== ENCOUNTER → 2020-07-07 13:50 | Outpatient (CLI) | payer MEDICAID, SELFPAY ==
[2020-07-07 14:40] LABS: Blood Urea Nitrogen 16 mg/dl (9-20); Estimated Glomerular Filt Rate 114 ml/min (>60); GFR (African American) 138 ML/MIN (>60)
== END ==
PROVIDERS: Visit Provider Surgery
DX: Z01.818 Encounter for other preprocedural examination (principal)
CPT/HCPCS: 36415; 82565; 84520

== ENCOUNTER → 2020-07-08 10:08 | Outpatient (CLI) | payer MEDICAID, SELFPAY ==
--- NOTE | 2020-07-08 10:08 | CT_ITS ---
PROCEDURE: CT ABDOMEN PELVIS W CON CLINICAL INDICATION: hernia ?hernia generalized upper and lower abd pain COMPARISON: CT CT ABDOMEN PELVIS W CON from 04/14/2020 TECHNIQUE: IV Contrast: 75ML OPTIRAY 350 Oral Contrast 450ml Redicat Axial images obtained with sagittal and coronal reformats. All CT scans at the facility use one or more dose reduction, viz: automated exposure control, ma/kV adjustment per patient size (including targeted exams where dose is matched to indication, i.e. head), or iterative reconstruction technique. FINDINGS: LOWER THORAX: Coronary artery calcification and/or stents noted. ABDOMEN & PELVIS: Fatty liver. Prior cholecystectomy. Mild splenomegaly at 14 cm. There is a dilated cystic structure in the gallbladder fossa and may be related to prominent cystic duct remnant or small biloma and not significantly changed measuring 4 by 2.6 cm. There is minimal prominence of the common bile duct not significantly changed. There is diffuse fatty infiltration of the pancreas. The adrenal glands are unremarkable. The there postsurgical changes of the anterior abdominal wall on the right. No renal or ureteral calculi. A 1.7 cm cyst is present in the lower pole of the left kidney. No evidence of appendicitis. No intestinal obstruction or free air. Central prostate calcifications are present. There are degenerative changes in the hips and lumbar spine. IMPRESSION: 1. No change with no acute finding. 2. Prior cholecystectomy with is cystic structure in the gallbladder fossa which could be due to dilated cystic duct remnant or a biloma not significantly changed. 3. Splenomegaly Dictated by: Ata Hardy MD 07/09/2020 10:25 Ata Hardy MD in [place] 07/09/2020 10:25
== END ==
PROVIDERS: PCP Emergency Medicine; Visit Provider Surgery
DX: R10.9 Unspecified abdominal pain (principal)
CPT/HCPCS: 74177; Q9967

== ENCOUNTER → 2020-07-10 09:03 | Outpatient (CLI) | payer MEDICAID, SELFPAY ==
--- NOTE | 2020-07-10 09:05 | CA_ITS ---
APPROVED REPORT Park Manager: MARINA Laterality: Bilateral Study Quality: Adequate Indications: neck pain,CAD,HTN,HLP Doppler Spectral Velocity Analysis pICA (R) 184.10/35.90 cm/s Estefany (L) 97.40/21.10 cm/s pICA (L) 103.00/22.30 cm/s dCCA (R) 101.10/26.00 cm/s pCCA (R) 146.40/19.80 cm/s dCCA (L) 81.10/18.60 cm/s Vert (R) 54.70/9.80 cm/s pCCA (L) 100.70/16.60 cm/s ICA/CCA 1.80 Vert (L) 61.60/14.00 cm/s ICA/CCA 1.30 Findings Duplex evaluation demonstrates stenosis of the right proximal internal carotid artery <20% with PSV <140 cm/sec, EDV <100 cm/sec, and IC/CC Ratio <4.0.Duplex evaluation demonstrates stenosis of the left proximal internal carotid artery in the range of 20-49% with PSV <140 cm/sec, EDV <100 cm/sec, and IC/CC Ratio <4.0. Technically difficult study secondary to anatomy high bifurcation of bilateral ICAs unable to visualize right mid and distal ICAs also unable to visualize left diatal ICA. Antegrade flow seen bilateral vertebral arteries. Conclusion Duplex evaluation demonstrates stenosis of the right proximal internal carotid artery <20% with PSV <140 cm/sec, EDV <100 cm/sec, and IC/CC Ratio <4.0.Duplex evaluation demonstrates stenosis of the left proximal internal carotid artery in the range of 20-49% with PSV <140 cm/sec, EDV <100 cm/sec, and IC/CC Ratio <4.0. Technically difficult study secondary to anatomy high bifurcation of bilateral ICAs unable to visualize right mid and distal ICAs also unable to visualize left diatal ICA. Antegrade flow seen bilateral vertebral arteries. Electronically signed by : Ata Hardy MD 07/10/2020 15:49:54
== END ==
PROVIDERS: PCP Emergency Medicine; Visit Provider Urology
DX: R06.09 Other forms of dyspnea (principal); E78.2 Mixed hyperlipidemia; I10 Essential (primary) hypertension; I25.118 Atherosclerotic heart disease of native coronary artery with other forms of angina pectoris; R53.83 Other fatigue; R60.0 Localized edema; Z95.5 Presence of coronary angioplasty implant and graft
CPT/HCPCS: 93880

== ENCOUNTER → 2020-09-14 13:09 | Outpatient (POV) | payer MEDICAID, SELFPAY | PROVIDERS: Visit Provider Nurse Practitioner Family | DX: Z00.00 Encounter for general adult medical examination without abnormal findings (principal) ==

== ENCOUNTER → 2020-09-18 09:42 | Outpatient (CLI) | payer MEDICAID, SELFPAY ==
[2020-09-19 11:33] LABS: H. pylori Breath Test Negative (Negative)
== END ==
PROVIDERS: Visit Provider Nurse Practitioner Family
DX: R10.84 Generalized abdominal pain (principal); R14.0 Abdominal distension (gaseous); K59.00 Constipation, unspecified
CPT/HCPCS: 83013

== ENCOUNTER → 2020-09-21 09:51 | Outpatient (CLI) | payer MEDICAID, SELFPAY ==
--- NOTE | 2020-09-21 10:01 | NM_ITS ---
PROCEDURE: NM GASTRIC EMPTYING STUDY CLINICAL INDICATION: ABD PAIN COMPARISON: No exams were available for comparison TECHNIQUE: Dose 0.58 mCi technetium sulfur colloid in radial labeled meal. FINDINGS: Time activity curve is generated following ingestion of a radial labeled meal. The 1/2 emptying time is 50 minutes which is within normal limits of 60+/-30 minutes. 94 percent of the gastric contents had emptied at 231 minutes. Images submitted shows no evidence of GE reflux. IMPRESSION: Normal gastric emptying time Dictated by: Ata Hardy MD 09/21/2020 17:50 Ata Hardy MD in [facility] 09/21/2020 17:50
--- NOTE | 2020-09-21 10:13 | HMH.ITSHM ---
Current Home Medications as stated by this patient Marti Gutierrez or public service representative. []OMEPRAZOLE LINAGLIPTIN ISOSORBIDE GLIPIZIDE GABAPENTIN FUROSEMIDE VITMAIN D2 VITMAIN D3 CARVEDILOL ATORVASTATIN ASA OXYCODONE LOSARTAN CLOPIDOGREL
== END ==
PROVIDERS: PCP Emergency Medicine; Visit Provider Nurse Practitioner Family
DX: R10.84 Generalized abdominal pain (principal); R14.0 Abdominal distension (gaseous); K59.00 Constipation, unspecified; B96.81 Helicobacter pylori [H. pylori] as the cause of diseases classified elsewhere
CPT/HCPCS: 78264; A9541

== ENCOUNTER → 2020-10-10 11:15 | Outpatient (CLI) | payer MEDICAID, SELFPAY ==
[2020-10-10 11:41] LABS: Basophils % 0.7 % (0.1-2.0); Eosinophils # 0.1 K/mm3 (0.0-0.4); Eosinophils % 2.2 % (0.1-12.0); Hematocrit 41.7 % (42.0-52.0); Hemoglobin 13.8 g/dL (14.1-18.0); Lymphocytes # 1.1 K/mm3 (0.7-4.5); Lymphocytes % 21.3 % (10-50); Mean Corpuscular HGB Conc 33.1 g/dL (31.8-35.4); Mean Corpuscular Hemoglobin 32.3 pg (27.0-31.2); Mean Corpuscular Volume 97.5 fl (80-94); Mean Platelet Volume 8.3 fl (7.4-10.4); Monocytes # 0.3 K/mm3 (0.1-1.0); Monocytes % 5.2 % (1.7-9.3); Neutrophils # 3.6 K/mm3 (1.8-7.8); Neutrophils % 70.6 % (37.0-80.0); Platelet Count 108 K/mm3 (142-424); Red Blood Count 4.27 M/mm3 (4.60-6.20); Red Cell Distribution Width 16.3 % (11.5-17.5); White Blood Count 5.1 K/mm3 (4.8-10.8)
[2020-10-10 12:27] LABS: Chloride 95 mmol/L (98-107); Sodium 135 mmol/L (136-145)
[2020-10-10 12:28] LABS: Potassium 4.2 mmoL/L (3.5-5.1)
[2020-10-10 12:30] LABS: Blood Urea Nitrogen 10 mg/dl (9-20); Estimated Glomerular Filt Rate 136 ml/min (>60); GFR (African American) 165 ML/MIN (>60)
[2020-10-10 12:31] LABS: Anion Gap 14.2 mEq/L (5-15); Calcium 9.3 mg/dl (8.4-10.2); Carbon Dioxide 30 mmol/L (22.0-30.0)
[2020-10-10 12:45] LABS: Glucose 426 mg/dl (74-100)
[2020-10-10 13:00] LABS: Coronavirus 19 IgG Antibody Negative (Negative); Coronavirus 19 IgM Antibody Negative (Negative)
== END ==
PROVIDERS: Urology; Visit Provider Internal Medicine
DX: Z01.818 Encounter for other preprocedural examination; Z03.818 Encounter for observation for suspected exposure to other biological agents ruled out; I20.9 Angina pectoris, unspecified; I25.118 Atherosclerotic heart disease of native coronary artery with other forms of angina pectoris; R06.09 Other forms of dyspnea; I65.29 Occlusion and stenosis of unspecified carotid artery; E78.2 Mixed hyperlipidemia; I10 Essential (primary) hypertension; R60.0 Localized edema; Z95.5 Presence of coronary angioplasty implant and graft
CPT/HCPCS: 36415; 80048; 85025; 86328

== ENCOUNTER 2020-10-12 08:53 | Day surgery (SDC) | payer MEDICAID, SELFPAY ==
[2020-10-12] VITALS (13 sets, daily range): BP systolic 120–174; BP diastolic 66–102; PULSE 75–89; RESP 13–18; TEMP 36.4; O2SAT 91–99; BMI 37.4
--- NOTE | 2020-10-12 07:37 | IR_ITS ---
APPROVED REPORT Patient Location: Outpatient PROCEDURES Left heart catheterization Left ventriculogram Selective coronary angiogram Drug-eluting stent deployment to the first obtuse marginal artery INDICATION Coronary artery disease, Class III angina pectoris despite 2 antianginal medications Informed consent was obtained prior to the procedure. COMPLICATIONS NONE Estimated Blood Loss: LESS THAN 10 ML TECHNIQUE One percent lidocaine used to anesthetize the right anterior aspect of the wrist. The right radial artery was accessed via the Seldinger technique. A 6 Japanese sheath was placed in the right radial artery. 2.5 mg of verapamil, 800 mcg of nitroglycerin, 1mg Lidocaine and 5000 U Heparin were given through the arterial sheath. The trap catheter and 6 Japanese JL 3 guide catheter were used to perform left heart catheterization left ventriculogram and selective coronary angiogram. At the end of the diagnostic angiogram therapeutic heparin was administered giving a therapeutic ACT. The guide catheter was placed in the left main artery and a Choice PT extra-support wire was placed in the first obtuse marginal artery. A 2 mm x 15 mm resolute carlotta stent was deployed at 16 kasia reducing the 90% stenosis to 0%. PAKO-3 flow was present before and after the procedure. At the end of the procedure the apparatus was removed the sheath was removed and hemostasis was achieved using TR banding patient was transferred to the postop holding area in stable condition ANGIOGRAPHIC RESULTS The left main artery Normal The left anterior descending artery Has proximal calcifications with a proximal 10 to 20% stenosis. The mid LAD has a widely patent stent with minimal in-stent restenosis with excellent proximal and distal transitioning. The remaining LAD has 20 and 30% stenoses. The distal LAD is an unusually small caliber vessel throughout its mid and distal course which is less than 1 mm in diameter. A large first diagonal artery has an ostial 40% stenosis with proximal 20 and 30% stenoses The circumflex artery Is a nondominant vessel with a 90% stenosis in a moderate-sized first obtuse marginal artery The right coronary artery Is a large dominant vessel which has proximal and mid vessel calcifications with no stenosis greater than 10 to 20%. Mild vascular ectasia is present throughout. A large posterior descending artery has mid vessel 40% stenosis followed by an eccentric 60% stenosis and 40% stenosis at a 2 mm segment. A large posterior lateral branch has mild 20 to 30% proximal mid vessel stenosis The [place] ventriculogram reveals Normal at 65% The left ventricular end-diastolic pressure 10 mmHg IMPRESSION Coronary disease as described above with most notable severe stenosis in the first obtuse marginal artery which was successfully revascularized with 1 drug-eluting stent Persistent moderate to severe stenosis in a large posterior descending artery which I believe is best managed medically and unlikely to be producing angina pectoris Normal ejection fraction Normal left ventricular end-diastolic pressure Unusually small mid and distal LAD which is too small for percutaneous intervention or surgical revascularization. This may be patient's etiology for chronic angina pectoris if the angina pectoris persists PLAN 1. Dual antiplatelet therapy 2. Aggressive risk factor modification 3. Increase carvedilol dosage to slow heart rate and reduce blood pressure 4. Avoidance of tobacco products 5. Cardiac rehabilitation 6. LDL less than 55 Electronically signed by : Mahesh Calderón, 10/12/2020 12:01:55
[2020-10-12 13:53] LABS: CATHL Activated Clotting Time 280 SEC (74-125)
--- NOTE | 2020-10-12 14:47 | HMH.PHACLD ---
Marti Gutierrez has received discharge medication counseling on the following medications: PATIENT CURRENTLY TAKING LOSARTAN 50 MG DAILY, ATORVASTATIN 10 MG HS, ASPIRIN DR 81 MG DAILY, AND PLAVIX 75 MG DAILY. MD INCREASING DOSE OF CARVEDILOL 12.5 MG BID TO CARVEDILOL 25 MG BID.
== END 2020-10-12 15:50 | disposition home or self-care (01) ==
LOC: CATHLAB 08:54
PROVIDERS: PCP Emergency Medicine; Visit Provider Internal Medicine
DX: I25.118 Atherosclerotic heart disease of native coronary artery with other forms of angina pectoris (principal); E78.2 Mixed hyperlipidemia; I10 Essential (primary) hypertension; Z95.5 Presence of coronary angioplasty implant and graft; I65.23 Occlusion and stenosis of bilateral carotid arteries; Z79.01 Long term (current) use of anticoagulants; Z79.82 Long term (current) use of aspirin; Z79.899 Other long term (current) drug therapy; E11.9 Type 2 diabetes mellitus without complications
CPT/HCPCS: 85347; 92928; 93458; 99152; C1725; C1769; C1876; C9600; J1644; Q9967

== ENCOUNTER 2020-10-20 14:15 | Outpatient (RCR) | payer MEDICAID, OTHER, SELFPAY | END 2021-02-03 09:45 | disposition home or self-care (01) | LOC: PT 14:15 | PROVIDERS: Visit Provider Internal Medicine | DX: Z95.5 Presence of coronary angioplasty implant and graft (principal) | CPT/HCPCS: 93798 ==

== ENCOUNTER → 2020-10-26 13:04 | Outpatient (CLI) | payer OTHER, SELFPAY ==
[2020-10-26 13:34] LABS: Basophils % 0.8 % (0.1-2.0); Eosinophils # 0.1 K/mm3 (0.0-0.4); Eosinophils % 2.4 % (0.1-12.0); Hematocrit 42.5 % (42.0-52.0); Hemoglobin 14.2 g/dL (14.1-18.0); Lymphocytes % 19.2 % (10-50); Mean Corpuscular HGB Conc 33.3 g/dL (31.8-35.4); Mean Corpuscular Hemoglobin 32.3 pg (27.0-31.2); Mean Corpuscular Volume 96.8 fl (80-94); Mean Platelet Volume 7.9 fl (7.4-10.4); Monocytes # 0.2 K/mm3 (0.1-1.0); Monocytes % 4.3 % (1.7-9.3); Neutrophils # 3.8 K/mm3 (1.8-7.8); Neutrophils % 73.2 % (37.0-80.0); Platelet Count 105 K/mm3 (142-424); Red Blood Count 4.39 M/mm3 (4.60-6.20); White Blood Count 5.2 K/mm3 (4.8-10.8)
[2020-10-26 14:10] LABS: Anion Gap 14.3 mEq/L (5-15); Blood Urea Nitrogen 9 mg/dl (9-20); Calcium 9.1 mg/dl (8.4-10.2); Carbon Dioxide 31 mmol/L (22.0-30.0); Chloride 96 mmol/L (98-107); Estimated Glomerular Filt Rate 114 ml/min (>60); GFR (African American) 138 ML/MIN (>60); Glucose 346 mg/dl (74-100); Potassium 4.3 mmoL/L (3.5-5.1); Sodium 137 mmol/L (136-145)
== END ==
PROVIDERS: Visit Provider Internal Medicine
DX: I20.9 Angina pectoris, unspecified (principal); R06.09 Other forms of dyspnea
CPT/HCPCS: 36415; 80048; 85025

== ENCOUNTER → 2021-03-08 14:35 | Outpatient (POV) | payer OTHER, SELFPAY | PROVIDERS: Visit Provider Nurse Practitioner Family | DX: Z00.00 Encounter for general adult medical examination without abnormal findings (principal) ==

== ENCOUNTER → 2021-04-27 14:08 | Outpatient (CLI) | payer OTHER, SELFPAY ==
[2021-04-27 15:13] LABS: Hemoglobin A1C 10.2 % (4.0-6.0)
== END ==
PROVIDERS: Visit Provider Emergency Medicine
DX: E11.9 Type 2 diabetes mellitus without complications (principal); Z79.84 Long term (current) use of oral hypoglycemic drugs
CPT/HCPCS: 83036

== ENCOUNTER → 2021-05-24 18:07 | Outpatient (CLI) | payer OTHER, SELFPAY ==
[2021-05-24 18:56] LABS: Basophils # 0.1 K/mm3 (0-0.2); Basophils % 1.1 % (0.1-2.0); Eosinophils # 0.1 K/mm3 (0.0-0.4); Hematocrit 42.5 % (42.0-52.0); Hemoglobin 14.3 g/dL (14.1-18.0); Lymphocytes # 1.2 K/mm3 (0.7-4.5); Lymphocytes % 19.6 % (10-50); Mean Corpuscular HGB Conc 33.7 g/dL (31.8-35.4); Mean Corpuscular Hemoglobin 32.3 pg (27.0-31.2); Mean Corpuscular Volume 95.8 fl (80-94); Mean Platelet Volume 7.9 fl (7.4-10.4); Monocytes # 0.3 K/mm3 (0.1-1.0); Monocytes % 4.5 % (1.7-9.3); Neutrophils # 4.4 K/mm3 (1.8-7.8); Neutrophils % 72.8 % (37.0-80.0); Platelet Count 174 K/mm3 (142-424); Red Blood Count 4.44 M/mm3 (4.60-6.20); Red Cell Distribution Width 16.2 % (11.5-17.5)
[2021-05-24 19:28] LABS: Creatinine,Urine Random 17 mg/dL (Not Estab.); Microalbumin < 6.000 mg/L (0-16.7)
[2021-05-24 19:52] LABS: Alanine Aminotransferase 23 U/L (12-78); Albumin Level 4.4 g/dl (3.5-5.0); Albumin/Globulin Ratio 1.5 (1.1-1.8); Alkaline Phosphatase 93 U/L (38-126); Anion Gap 13.9 mEq/L (5-15); Aspartate Amino Transferase 34 U/L (17-59); Bilirubin,Total 4.9 mg/dl (0.2-1.3); Blood Urea Nitrogen 8 mg/dl (9-20); Calcium 9.1 mg/dl (8.4-10.2); Carbon Dioxide 30 mmol/L (22.0-30.0); Chloride 97 mmol/L (98-107); Chol/HDL Ratio 3.1 (1-3.5); Cholesterol 94 mg/dl (140-200); Estimated Glomerular Filt Rate 136 ml/min (>60); GFR (African American) 164 ML/MIN (>60); Globulin 2.9 g/dL (1.3-3.2); Glucose 360 mg/dl (74-100); HDL Cholesterol 30 mg/dl (40-60); Potassium 4.9 mmoL/L (3.5-5.1); Sodium 136 mmol/L (136-145); Total Protein,Serum 7.3 g/dl (6.3-8.2); Triglycerides 202 mg/dl (30-150); VLDL Cholesterol 40 mg/dL (0-40)
[2021-05-24 20:09] LABS: T4 (Thyroxine) 11.2 ug/dl (5.53-11.0)
[2021-05-24 20:11] LABS: 25-OH Vitamin D, Total 37.8 ng/mL (30-100)
[2021-05-24 20:23] LABS: Prostate Specific Ag Screen 0.2 ng/ml (0.0-4.0); Thyroid Stimulating Hormone 1.12 uIU/mL (0.465-4.68)
== END ==
PROVIDERS: Visit Provider Nurse Practitioner Family
DX: I25.10 Atherosclerotic heart disease of native coronary artery without angina pectoris (principal); I10 Essential (primary) hypertension; E78.5 Hyperlipidemia, unspecified; E11.9 Type 2 diabetes mellitus without complications; E55.9 Vitamin D deficiency, unspecified; E66.9 Obesity, unspecified; Z12.5 Encounter for screening for malignant neoplasm of prostate; Z68.33 Body mass index [BMI] 33.0-33.9, adult; Z79.84 Long term (current) use of oral hypoglycemic drugs
CPT/HCPCS: 80053; 80061; 82043; 82306; 82570; 84436; 84443; 85025; G0103